=== PATIENT | female | born 1950 | race Caucasian/White ===

== ENCOUNTER 2019-10-08 07:40 | Day surgery (SDC) | payer OTHER ==
[~2019-10-08] VITALS: Ht 157.5 cm; Wt 72.1 kg
[~2019-10-08 07:40] MED LIST: ALLEGRA ALLERG180 MG PO; ALLER-EASE180 MG PO; ASPIR 8181 MG PO; CALCIUM 600 +1 EAC4 PO; DICLOFENAC SODI75 MG PO; ROBITUSSIN30 MG/5 ML PO; VENTOLIN HFA18 GM INH; VITAMIN D350 MCG PO; [UNRECOGNIZED DRUG - OTHER] PO
[2019-10-08] MEDS ORDERED: CLARITIN10 M2 PO (08:10)
--- NOTE | 2019-10-08 10:03 | NUR ---
10/08/19 [place] Anny Vyas 2442-PATIENT ARRIVED TO PACU ON 2L NC RR EVEN. LAYING LEFT LATERAL. ABDOMEN SOFT AND PASSING GAS. IVF INFUSING. PATIENT REACTIVE TO VERBAL STIMULI OPENING EYES DROWSY. DOZES BACK TO SLEEP.
--- NOTE | 2019-10-08 11:53 | OR ---
[facility] [address], [place] [address] Signed DATE OF OPERATION: 10/08/2019 SURGEON: Clinton Shah MD PREOPERATIVE DIAGNOSES: 1. Father with colon cancer in his 50s. 2. Half sister with colon cancer in her 50s. 3. Brother with colonic polyps in his 50s. 4. Diverticulosis. POSTOPERATIVE DIAGNOSES: 1. An 8 mm sessile polyp at 5 cm, posterior midline (tattoo). 2. Minimal to moderate sigmoid diverticulosis. 3. Long tortuous sigmoid colon, particularly at 30 cm. 4. Minimal internal hemorrhoids. PROCEDURES: 1. Colonoscopy, snare polypectomy, hot biopsy and injection of tattoo. 2. Rigid proctoscopy. ESTIMATED BLOOD LOSS: None. INDICATIONS: Zoe is a 69-year-old lady, asked to see me for a followup colonoscopy. We know her family history as listed above. Zoe had her initial colonoscopy in 2011. She was known to have diverticulosis at that time. She has no lower GI complaints. In the office, I gave her a pamphlet on colonoscopy. We looked at that together along with the risks including, but not limited to gas bloating, crampy abdominal pain, bleeding, perforation requiring surgery, and missed diagnosis. We also discussed the need for IV conscious sedation. She has done well with Versed and fentanyl in the past. She had expressed understanding and wished to proceed. DESCRIPTION OF PROCEDURE: Zoe was taken into our endoscopy suite and placed in the left lateral decubitus position. She was given antibiotics because of bilateral hip replacements. She was given a total of 10 mg of Versed and 175 mcg of fentanyl to cover the case. A digital rectal exam was performed and this was unremarkable. The adult colonoscope was introduced and we could see an 8 mm sessile polyp just above the anal canal. Of course, it is most distal haustral fold that was removed with a combination of the snare and hot Electronically Signed By: CLINTON SHHA MD 10/08/19 1153 PATIENT NAME: ZOE MCMULLEN OPERATIVE REPORT DATE OF : 50 REPORT #: [id number] PHYSICIAN: CLINTON SHAH MD PCP: NO PRIMARY CARE PHYSICIAN REPORT IS CONFIDENTIAL AND NOT TO BE RELEASED WITHOUT AUTHORIZATION [facility] [address], [place] [address] Signed biopsy forceps. We then injected a tattoo underneath that area. The scope had been then advanced. She has a long tortuous somewhat narrow sigmoid colon. At 30 cm, it gave us quite a bit of trouble and it took extra sedation, extra time in abdominal compression and pulling the scope back and forth to finally straighten the sigmoid colon to get the camera up in the left colon. It gave us a little bit of resistance as we moved ahead, but as we brought the camera back and forth, it straightened out. We then passed into the cecum quite nicely. Her prep was quite excellent. We could easily see the appendiceal orifice and the ileocecal valve. The scope was slowly withdrawn. She does have diverticula in the sigmoid colon. They were moderate in size, few to moderate in number, and scattered about. Again, she has somewhat long tortuous sigmoid colon and we could see some angulation at 30 cm. Down in the rectum, then we could once again see our polypectomy site. The rest of the rectum was unremarkable. Upon retroflexion of scope, she has very minimal and routine internal hemorrhoid tissue. After this, the gas was suctioned out and the colonoscope removed. The rigid proctoscope was brought out and gently inserted and we could see the tattoo in the polypectomy site in the posterior midline at 5 cm from the anal verge. After this, the gas was allowed to escape and the proctoscope was removed. Zoe tolerated that quite well. RECOMMENDATIONS: I will see Zoe back in my office in 7 to 14 days to review her results. MD BARBARA Louie/BELINDAL /[id number] cc: MD Keeley Louie MD Copies: CLINTON SHAH MD Electronically Signed By: CLINTON SHAH MD 10/08/19 1153 PATIENT NAME: ZOE MCMULLEN OPERATIVE REPORT DATE OF : 50 REPORT #: [id number] PHYSICIAN: CLINTON SHAH MD PCP: NO PRIMARY CARE PHYSICIAN REPORT IS CONFIDENTIAL AND NOT TO BE RELEASED WITHOUT AUTHORIZATION [address] [address] Signed KEELEY RO MD ~ Electronically Signed By: CLINTON SHAH MD 10/08/19 1153 PATIENT NAME: CAROLINE DE LEONZOE GÉNESIS OPERATIVE REPORT DATE OF : 50 REPORT #: [id number] PHYSICIAN: CLINTON SHAH MD PCP: NO PRIMARY CARE PHYSICIAN REPORT IS CONFIDENTIAL AND NOT TO BE RELEASED WITHOUT AUTHORIZATION
--- NOTE | 2019-10-09 11:55 | PATH ---
[facility] [address] [place], [place] [address] Signed SPECIMEN(S): A COLON POLYP AT 5 CM SPECIMEN SOURCE: A. COLON POLYP AT 5 CM CLINICAL HISTORY: Colonoscopy. Pre: History of diverticulosis. Post: Internal hemorrhoids, diverticulosis, rectal polyp. MICROSCOPIC DESCRIPTION: Histologic sections of all submitted blocks are examined by light microscopy. These findings, together with the gross examination, support the pathologic diagnosis. FINAL PATHOLOGIC DIAGNOSIS: Colon, polyp at 5 cm, polypectomy: - Fragments of tubular adenoma. - Negative for high-grade dysplasia or malignancy. NAL:cml:C2NR GROSS DESCRIPTION: The specimen, labeled "JG," and designated on the requisition "colon polypectomy, 5 cm," is received in formalin and consists of four fragments of pink-gutierrez to hemorrhagic tissue (0.7 x 0.4 x 0.3 cm in aggregate). The specimen is submitted entirely in cassette (A1). AC (under the direct supervision of a pathologist) The Gross Description was prepared using a voice recognition system. The report was reviewed for accuracy; however, sound-alike word errors, addition and/or deletions may occur. If there is any question about this report, please contact Client Services. PERFORMING LABORATORY: The technical component was performed by [facility], [address] [place] [id number] (Driver Wheelchair: Shelly Cooper MD; CLIA# [id number]). [facility] [address] [address] (CLIA# [id number]). Diagnostician: Felicity Lyn MD Pathologist Electronically Signed 10/09/2019 PATIENT NAME: ZOE MCMULLEN PATHOLOGY DATE OF : 50 REPORT #: [id number] PHYSICIAN: [facility] PCP: NO PRIMARY CARE PHYSICIAN REPORT IS CONFIDENTIAL AND NOT TO BE RELEASED WITHOUT AUTHORIZATION [address] [address] Signed Copies: ~ PATIENT NAME: ZOE MCMULLEN PATHOLOGY DATE OF : 50 REPORT #: [id number] PHYSICIAN: [facility] PCP: NO PRIMARY CARE PHYSICIAN REPORT IS CONFIDENTIAL AND NOT TO BE RELEASED WITHOUT AUTHORIZATION
== END 2019-10-08 10:55 | disposition home or self-care (01) ==
LOC: OPS 07:40 → DS 07:40 → OPS 09:00
PROVIDERS: Colon & Rectal Surgery
PROC: 3E0H8GC Introduction of Other Therapeutic Substance into Lower GI, Via Natural or Artificial Opening Endoscopic (ICD-10-PCS; 2019-10-08)
PROC: 0DBE8ZZ Excision of Large Intestine, Via Natural or Artificial Opening Endoscopic (ICD-10-PCS; principal; 2019-10-08 09:00)
DX: Z12.11 Encounter for screening for malignant neoplasm of colon (principal); D12.6 Benign neoplasm of colon, unspecified; K64.8 Other hemorrhoids; K57.30 Diverticulosis of large intestine without perforation or abscess without bleeding; K63.89 Other specified diseases of intestine; Z79.899 Other long term (current) drug therapy; Z80.0 Family history of malignant neoplasm of digestive organs
CPT/HCPCS: 99153; G0500; J0690; J2250; J3010; J7121